=== PATIENT | male | born 1990 | race Caucasian/White ===

== ENCOUNTER 2019-05-21 00:33 | Emergency (ER) | payer SELFPAY ==
[~2019-05-21] VITALS: Ht 188 cm; Wt 113.4 kg
[2019-05-21 00:47] VITALS: BP 124/77
--- NOTE | 2019-05-21 00:47 | NUR ---
ED Nurse Note: OD on xanax and possible street fentanyl. Pt called EMS from his car, as he was trying to get to a hospital. Pt is AO x 2~3 times, VSS, on room air no distress. MEGD seen Pt at bedside.
[2019-05-21] MEDS ORDERED: Naloxone 1mg/ml 2ml IVP ONE (01:00)
[2019-05-21 02:30] VITALS: BP 110/80
[2019-05-21] MEDS ORDERED: NARCAN4 MG NS (02:53)
[2019-05-21 03:51] VITALS: BP 118/79
--- NOTE | 2019-05-21 03:56 | NUR ---
ER DISCHARGE NOTE: Patient is cleared to be discharged per ERMD, pt is aox4, on room air, with stable vital signs. pt was given dc and prescription instructions, pt was able to verbalize understanding, pt id band and iv site removed without complications. pt is able to ambulate with steady gait with mother. pt took all belongings.
[2019-05-21 03:57] VITALS: BP 118/79
--- NOTE | 2019-05-21 05:31 | Emergency Room Report ---
History of Present Illness General Chief Complaint: Overdose Source: EMS Present Illness HPI Patient is a 29-year-old male who presented by EMS after overdose on fentanyl. Patient states that he had used fentanyl just prior to arrival. He reported feeling bad subsequently and called EMS. He had prior history of heroin abuse but had not used fentanyl in the past. He denies any nausea or vomiting. He states is not used for quite a long time. He denies any other ingestion. Allergies: Uncoded Allergies: SHELL FISH (Allergy, Unknown, 05/21/19) Patient History Past Medical History: see triage record Reviewed Nursing Documentation: PMH: Agreed; PSxH: Agreed Nursing Documentation-PMH Hx Hypertension: Yes History Of Psychiatric Problem: Yes - Anxiety Review of Systems All Other Systems: negative except mentioned in HPI Physical Exam Vital Signs Date Time Temp Pulse Resp B/P (MAP) Pulse Ox O2 Delivery O2 Flow Rate FiO2 05/21/19 00:42 98.4 105 16 111/73 (86) 94 Room Air Sp02 EP Interpretation: reviewed, normal General Appearance: normal inspection, well appearing, no apparent distress, alert, GCS 15 Head: atraumatic ENT: normal ENT inspection, hearing grossly normal, normal voice Neck: normal inspection, full range of motion, supple, no bony tend Respiratory: normal inspection, lungs clear, normal breath sounds, no respiratory distress, no retraction, no wheezing Cardiovascular #1: regular rate, rhythm, no edema Gastrointestinal: normal inspection, normal bowel sounds, non tender, soft, no guarding, no hernia Genitourinary: no CVA tenderness Musculoskeletal: normal inspection, back normal, normal range of motion Neurologic: normal inspection, alert, responsive, speech normal Psychiatric: normal inspection, judgement/insight normal, mood/affect normal Medical Decision Making Diagnostic Impression: Primary Impression: Drug overdose ER Course Patient presented after a drug overdose. Differential diagnosis include was not limited to, ingestion, delayed pulmonary edema, opiate withdrawal among others. Patient was noted to be somewhat somnolent initially. He was given Narcan dosing with improvement in his mental status. Patient was observed in the emergency department was stable throughout stay. He did not require further Narcan dosing. At the time of discharge patient was awake alert oriented x3. He is ambulatory without assistance.Patient was given prescription for Narcan intranasal Last Vital Signs Date Time Temp Pulse Resp B/P (MAP) Pulse Ox O2 Delivery O2 Flow Rate FiO2 05/21/19 03:57 97.6 94 19 118/79 98 Room Air Status: improved Disposition: HOME, SELF-CARE Condition: Improved Scripts Naloxone HCl (Narcan) 4 Mg [place] 4 MG NS ONCE for overdose, #1 SPRAY Prov: Leonardo Pierre MD 05/21/19 Referrals: NOT CHOSEN IPA/,REFERRING (PCP) Patient Instructions: Narcotic Overdose Leonardo Pierre MD May 21, 2019 05:31
== END 2019-05-21 03:58 | disposition home or self-care (01) ==
LOC: EDBD 00:33 → EMR 01:12
DX: T40.4X1A Poisoning by other synthetic narcotics, accidental (unintentional), initial encounter (principal); Z91.013 Allergy to seafood; I10 Essential (primary) hypertension; F41.9 Anxiety disorder, unspecified
CPT/HCPCS: 96374; 99284; J2310

== ENCOUNTER 2019-07-27 03:10 | Inpatient (IN) | payer BC ==
[~2019-07-27] VITALS: Ht 190.5 cm; Wt 107.0 kg
[2019-07-27] VITALS (7 sets, daily range): BP systolic 93–149; BP diastolic 54–86
[~2019-07-27 03:10] MED LIST: NARCAN4 MG NS
--- NOTE | 2019-07-27 03:20 | NUR ---
ED Nurse Note: PATIENT WAS BIBA R58 FROM 05/22 C/C OD ON FENTANYL. BS WAS 273 UPON ARRIVAL. NARCAN 2MG IM X 1. PATIENT PRESENTED AAO X2, BARELY SPEAKING, TACHICARDIC, OTHER VSS AT THIS TIME, SKIN IS DRY WARM TO TOUCH.
--- NOTE | 2019-07-27 03:27 | NUR ---
[facility] is here
[2019-07-27 03:38] LABS: HEMATOCRIT 46.2 % (42.0-52.0); HEMOGLOBIN 15.6 G/DL (14.2-18.0); MEAN CORPUSCULAR VOLUME 88 FL (80-99); PLATELET COUNT 273 K/UL (150-450); RED BLOOD COUNT 5.23 M/UL (4.70-6.10); RED CELL DISTRIBUTION WIDTH 11.3 % (11.6-14.8)
[2019-07-27 03:44] LABS: ANION GAP 12 mmol/L (5-15); BLOOD UREA NITROGEN 15 mg/dL (7-18); CALCIUM 8.5 MG/DL (8.5-10.1); CARBON DIOXIDE 28 MMOL/L (21-32); CHLORIDE 101 MMOL/L (98-107); CREATININE 1.4 MG/DL (0.55-1.30); POTASSIUM 4.2 MMOL/L (3.5-5.1); SODIUM 140 MMOL/L (136-145)
[2019-07-27 03:49] LABS: ALANINE AMINOTRANSFERASE 50 U/L (12-78); ALBUMIN 4.3 G/DL (3.4-5.0); ALBUMIN/GLOBULIN RATIO 1.1 (1.0-2.7); ALKALINE PHOSPHATASE 95 U/L (46-116); ASPARTATE AMINO TRANSFERASE 49 U/L (15-37); BILIRUBIN,TOTAL 0.6 MG/DL (0.2-1.0)
[2019-07-27 04:03] LABS: APPEARANCE,URINE CLEAR; BILIRUBIN, URINE NEGATIVE (NEGATIVE); COLOR,URINE PALE YELLOW; GLUCOSE, URINE (UA) 4+ (NEGATIVE); KETONES,URINE NEGATIVE (NEGATIVE); LEUKOCYTE ESTERASE ,URINE NEGATIVE (NEGATIVE); NITRITE,URINE NEGATIVE (NEGATIVE); PH,URINE 5 (4.5-8.0); PROTEIN,URINE 2+ (NEGATIVE); UROBILINOGEN,URINE NORMAL MG/DL (0.0-1.0)
[2019-07-27] MEDS ORDERED: cefTRIAXone 1 GM in NS 55 ML IVPB ONE (04:45)
--- NOTE | 2019-07-27 05:17 | Emergency Room Report ---
History of Present Illness General Chief Complaint: Overdose Source: Patient Present Illness HPI 29-year-old male presents ED for evaluation. Brought in by EMS for overdose. Reportedly used fentanyl tonight. Was given Narcan by EMS. Is more awake. Admits to fentanyl use. Denies SI or HI. Denies any other drug use. Denies chest pain or shortness of breath. No other aggravating relieving factors. Denies any other associated symptoms Allergies: Uncoded Allergies: PEANUTS (Allergy, Unknown, 07/27/19) SHELL FISH (Allergy, Unknown, 05/21/19) Patient History Past Medical History: psych hx Past Surgical History: none Pertinent Family History: none Social History: Reports: drug use; Denies: smoking, alcohol use Immunizations: UTD Reviewed Nursing Documentation: PMH: Agreed; PSxH: Agreed Nursing Documentation-PMH Past Medical History: No History, Except For Hx Hypertension: Yes History Of Psychiatric Problem: Yes - DEPRESSION Review of Systems All Other Systems: negative except mentioned in HPI Physical Exam Vital Signs Date Time Temp Pulse Resp B/P (MAP) Pulse Ox O2 Delivery O2 Flow Rate FiO2 07/27/19 03:06 98.6 132 24 149/86 (107) 99 Room Air Sp02 EP Interpretation: reviewed, normal General Appearance: no apparent distress, alert, GCS 15, non-toxic Head: normocephalic, atraumatic Eyes: bilateral eye normal inspection, bilateral eye PERRL ENT: hearing grossly normal, normal pharynx, no angioedema, normal voice Neck: full range of motion, supple/symm/no masses Respiratory: chest non-tender, lungs clear, normal breath sounds, speaking full sentences Cardiovascular #1: no edema, tachycardia Cardiovascular #2: 2+ carotid (R), 2+ carotid (L), 2+ radial (R), 2+ radial (L) , 2+ dorsalis pedis (R), 2+ dorsalis pedis (L) Gastrointestinal: normal bowel sounds, non tender, soft, non-distended, no guarding, no rebound Rectal: deferred Genitourinary: normal inspection, no CVA tenderness Musculoskeletal: back normal, gait/station normal, normal range of motion, non- tender Neurologic: alert, oriented x3, responsive, motor strength/tone normal, sensory intact, speech normal Psychiatric: judgement/insight normal, memory normal, anxious Reflexes: 3+ bicep (R), 3+ bicep (L), 3+ tricep (R), 3+ tricep (L), 3+ knee (R) , 3+ knee (L) Skin: other - see nursing notes Lymphatic: no adenopathy Procedures Critical Care Time Critical Care Time i. I feel this is a highly complex case requiring extensive working including EKG/Rhythm strip, Xray/CT/US, Blood/urine lab work, repeat exams while in ED, and administration of strong opiates/narcotics for pain control, admission to hospital or close patient follow up. Total time: 30 min bedside evaluation and treatment excludes procedures (EKG). Reason for critical care: tachycardia, hypotensive, leukocytosis, overdose Possible complications: hypotension, hypertension, CT, shock, arrhythmias, metabolic acidosis, end organ damage, respiratory failure. Interventions: Labs, IV fluids, EKG, fluid bolusing. Antibiotics. Chest x-ray. Course: Patient presenting status post overdose. Given Narcan. Tachycardic. Patient given IV fluids. Significant leukocytosis. Questionable infiltrate on x-ray concerning for aspiration. Given antibiotics. Became hypotensive. Improved with Trendelenburg and fluid bolus. Consultations: nursing staff, EMS, family Performed by: Dr Plasencia Tolerated well condition = serious j. because of unstable vital signs this patient had a condition that could potentially threaten life or limb. I feel this is a critical patient who required my full attention while patient was considered critical. Total Critical Care Time excluding procedures was greater than 35 minutes Medical Decision Making Diagnostic Impression: Primary Impression: Drug overdose Qualified Codes: T50.904A - Poisoning by unspecified drugs, medicaments and biological substances, undetermined, initial encounter Additional Impressions: Hyperglycemia Leukocytosis Qualified Codes: D72.829 - Elevated white blood cell count, unspecified ER Course Hospital Course 29-year-old male presents to ED with altered mental status. used fentanyl. given narcan Differential diagnoses include: substance, alcohol toxicity, dehydration Clinical course She placed on stretcher. 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 After initial history and physical ordered labs, IV fluids, EKG Labs reviewed-electrolytes okay, marked leukocytosis, hemoglobin/hematocrit stable, UA negative EKG - sinus tachycardia no acute ischemic changes interpreted by me CXR - ? interstitial congestion Patient stated he has been feeling depressed lately however denies SI. Has been seen here previously for fentanyl overdose. Given leukocytosis concern for aspiration. Given antibiotics. Patient became hypotensive. Given IV fluids with tachycardia and BP improving case discussed with Dr. Anderson and he agreed to accept the patient to his service for further care and support i. I feel this is a highly complex case requiring extensive working including EKG/Rhythm strip, Xray/CT/US, Blood/urine lab work, repeat exams while in ED, and administration of strong opiates/narcotics for pain control, admission to hospital or close patient follow up. Diagnosis - drug overdose, hyperglycemia, leukocytosis Admitted to telemetry in serious condition Labs Test 07/27/19 03:30 07/27/19 05:07 White Blood Count 26.0 K/UL (4.8-10.8) Red Blood Count 5.23 M/UL (4.70-6.10) Hemoglobin 15.6 G/DL (14.2-18.0) Hematocrit 46.2 % (42.0-52.0) Mean Corpuscular Volume 88 FL (80-99) Mean Corpuscular Hemoglobin 29.9 PG (27.0-31.0) Mean Corpuscular Hemoglobin Concent 33.9 G/DL (32.0-36.0) Red Cell Distribution Width 11.3 % (11.6-14.8) Platelet Count 273 K/UL (150-450) Mean Platelet Volume 6.9 FL (6.5-10.1) Neutrophils (%) (Auto) % (45.0-75.0) Lymphocytes (%) (Auto) % (20.0-45.0) Monocytes (%) (Auto) % (1.0-10.0) Eosinophils (%) (Auto) % (0.0-3.0) Basophils (%) (Auto) % (0.0-2.0) Differential Total Cells Counted 100 Neutrophils % (Manual) 92 % (45-75) Lymphocytes % (Manual) 5 % (20-45) Monocytes % (Manual) 1 % (1-10) Eosinophils % (Manual) 0 % (0-3) Basophils % (Manual) 0 % (0-2) Band Neutrophils 2 % (0-8) Platelet Estimate Adequate Platelet Morphology Normal Red Blood Cell Morphology Normal Urine Color Pale yellow Urine Appearance Clear Urine pH 5 (4.5-8.0) Urine Specific [place] 1.025 (1.005-1.035) Urine Protein 2+ (NEGATIVE) Urine Glucose (UA) 4+ (NEGATIVE) Urine Ketones Negative (NEGATIVE) Urine Blood 1+ (NEGATIVE) Urine Nitrite Negative (NEGATIVE) Urine Bilirubin Negative (NEGATIVE) Urine Urobilinogen Normal MG/DL (0.0-1.0) Urine Leukocyte Esterase Negative (NEGATIVE) Urine RBC 10-15 /HPF (0 - 0) Urine WBC 5-10 /HPF (0 - 0) Urine Squamous Epithelial Cells Occasional /LPF Urine Bacteria Few /HPF (NONE) Urine Hyaline Casts 0-2 /LPF (NONE) Urine Fine Granular Casts 2-4 /LPF (NONE) Sodium Level 140 MMOL/L (136-145) Potassium Level 4.2 MMOL/L (3.5-5.1) Chloride Level 101 MMOL/L (98-107) Carbon Dioxide Level 28 MMOL/L (21-32) Anion Gap 12 mmol/L (5-15) Blood Urea Nitrogen 15 mg/dL (7-18) Creatinine 1.4 MG/DL (0.55-1.30) Estimat Glomerular Filtration Rate 59.9 mL/min (>60) Glucose Level 273 MG/DL (74-106) Calcium Level 8.5 MG/DL (8.5-10.1) Total Bilirubin 0.6 MG/DL (0.2-1.0) Aspartate Amino Transf (AST/SGOT) 49 U/L (15-37) Alanine Aminotransferase (ALT/SGPT) 50 U/L (12-78) Alkaline Phosphatase 95 U/L (46-116) Total Protein 8.2 G/DL (6.4-8.2) Albumin 4.3 G/DL (3.4-5.0) Globulin 3.9 g/dL Albumin/Globulin Ratio 1.1 (1.0-2.7) Salicylates Level 0.6 ug/mL (2.8-20) Urine Opiates Screen Negative (NEGATIVE) Acetaminophen Level < 2 MCG/ML (10-30) Urine Barbiturates Screen Negative (NEGATIVE) Phencyclidine (PCP) Screen Negative (NEGATIVE) Urine Amphetamines Screen Negative (NEGATIVE) Urine Benzodiazepines Screen Negative (NEGATIVE) Urine Cocaine Screen Negative (NEGATIVE) Urine Marijuana (THC) Screen Negative (NEGATIVE) Serum Alcohol < 3 mg/dL EKG Diagnostic Results Rate: tachycardiac Rhythm: NSR ST Segments: no acute changes ASA given to the pt in ED: No Rhythm Strip Diag. Results EP Interpretation: yes Rhythm: NSR, no PVC's, no ectopy Chest X-Ray Diagnostic Results Chest X-Ray Diagnostic Results : Chest X-Ray Ordered: Yes # of Views/Limited/Complete: 1 View Indication: Other EP Interpretation: Yes Interpretation: no pneumothorax, other Last Vital Signs Date Time Temp Pulse Resp B/P (MAP) Pulse Ox O2 Delivery O2 Flow Rate FiO2 07/27/19 03:14 98.6 24 149/86 99 Room Air 07/27/19 03:14 132 Status: improved Disposition: ADMITTED INPATIENT Condition: Serious Referrals: NOT CHOSEN IPA/,REFERRING (PCP) Nilay Plasencia MD Jul 27, 2019 05:17
--- NOTE | 2019-07-27 05:24 | Diagnostic Imaging Report ---
EXAM: XR Chest, 1 View CLINICAL HISTORY: AMS TECHNIQUE: Frontal view of the chest. COMPARISON: No relevant prior studies available. FINDINGS: Lungs: The lungs are mildly hypoinflated, slightly accentuating interstitial and vascular markings. Mild perihilar interstitial opacities, left more than right, suggestive of mild interstitial edema. No definite airspace consolidation. Mild bibasilar atelectasis. Pleural space: Unremarkable. No pneumothorax. Heart: Unremarkable. No cardiomegaly. Mediastinum: Unremarkable. No mediastinal widening or shift. Bones joints: Unremarkable. IMPRESSION: Mild interstitial edema. No airspace consolidation.
[2019-07-27] MEDS ORDERED: Azithromycin 500 MG in NS 275 ML IV ONE (05:45)
--- NOTE | 2019-07-27 06:10 | NUR ---
ED Nurse Note: Patient was admited to Tele due to OD, hyperglycemia. Patient was transfered to the unit via gurney, by ACLS protocol, with all belongings. is by bed side.
--- NOTE | 2019-07-27 06:30 | NUR ---
NURSE NOTES: Pt arrived on unit via gurney from ER. Got report from Gabrielle VALDIVIA. Pt says he feels a little dizzy but better than before. Pt fully oriented and able to answer all of my questions but it take him awhile to answer. No skin issues noted. VS BP:93/60 HR:106 T:98.2 R:18 O2:96% on 2L NC. Pt able to ambulate but still weak. Denies any pain. Denies any N/V. Pt resting in bed comfortably. Bed in low and locked position, call light within reach, bedside table within reach. Dr. Condon will be his primary Dr. Continue to monitor.
--- NOTE | 2019-07-27 07:00 | NUR ---
HAND-OFF: Report given to Daysi VALDIVIA.
--- NOTE | 2019-07-27 07:23 | NUR ---
NURSE NOTES: Received report from Gaurang/RN, Patient is asleep, lying semi-earl's, resting comfortably. On 2L nasal canula, No signs of acute distress/SOB noted at this time. Checked IV site, patent, no bleeding, or infiltration noted. Bed at lowest position, and locked. brakes on, side rails up x3, Family at bedside. Call light and personal belonging within reach. Will continue plan of care.
--- NOTE | 2019-07-27 09:05 | NUR ---
NURSE NOTES: pt SR in the monitor, spoke with Dr Mahajan and stated pt is stable and can be transfer to med surg.
[2019-07-27] MEDS ORDERED: LEXAPRO20 MG ORAL (10:37)
--- NOTE | 2019-07-27 10:38 | History and Physical ---
History of Present Illness General Date patient seen: Jul 27, 2019 Time patient seen: 08:00 Reason for Hospitalization: fentanyl overdose Present Illness HPI 29 year old male with hx of depression (on lexapro 30 mg), presented after fentanyl overdose. He attends [employer] and has been sober for ~60 days. Last night, he went to hang out with his sober friends from , texted his mom and significant other that he will be back home around midnight. However , he did not return home. Thankfully, he had a tracker (Find my location) on, so his mother and SO went to find him in his car, not breathing, with eyes open and vomit all over his shirt, arounud mouth, around 1:30AM. 911 was called, and bystanders started resuscitation. When 911 arrived, Narcan spray was used with immediate improvement. Subsequently, he was transferred here for further evaluation. Of note, he is following a therapist, and occasionally gets his Lexapro prescription filled by a psychiatrist. He and his family deny use of tobacco, THC and alcohol. His drug of choice is fentanyl and he smokes it. Per SO, he gets it through [facility]. He denies any suicidal ideation, but SO is not sure. His depression has been difficult to control. She thinks he may be bipolar. Patient currently denies any SOB, chest pain, fever, chills, cough, weakness, nausea, vomiting. Mother and SO are interested to see social director, psychiatry and prescription for Narcane. Social history: stated above. Lives with SO. Works at the [email or web address] owned by [employer]. Allergies: Uncoded Allergies: PEANUTS (Allergy, Unknown, 07/27/19) SHELL FISH (Allergy, Unknown, 05/21/19) Medication History Scheduled Escitalopram Oxalate* (Lexapro*), 30 MG ORAL DAILY, (Reported) Naloxone HCl (Narcan), 4 MG NS ONCE Patient History History Provided By: Patient, Family Member, Significant Other Healthcare decision maker DOMINIK MCCONNELL Resuscitation status Full Code Advanced Directive on File No Past Medical/Surgical History Past Medical/Surgical History: (1) Hyperglycemia (2) Drug overdose (3) Leukocytosis (4) Major depressive disorder Review of Systems Constitutional: Denies: no symptoms, see HPI, chills, sweats, fever, malaise, weakness, other Eye: Denies: no symptoms, see HPI, eye pain, blurred vision, tearing, double vision, nose pain, nose congestion, acuity changes, discharge, other ENT: Denies: no symptoms, see HPI, ear pain, ear discharge, nose pain, nose congestion, throat pain, throat swelling, mouth pain, hearing loss, nasal discharge, other Respiratory: Denies: no symptoms, see HPI, cough, orthopnea, shortness of breath, stridor, wheezing, RUBIO, sputum, other Cardiovascular: Denies: no symptoms, see HPI, chest pain, edema, palpitations, syncope, PND, other Gastrointestinal: Denies: no symptoms, see HPI, abdominal pain, constipation, diarrhea, nausea, vomiting, melena, hematemesis, other Genitourinary: Denies: no symptoms, see HPI, discharge, dysuria, frequency, hematuria, pain, retention, incontinence, urgency, vag bleed/dc, other Musculoskeletal: Denies: no symptoms, see HPI, back pain, gout, joint pain, joint swelling, muscle pain, muscle stiffness, other Skin: Denies: no symptoms, see HPI, rash, change in color, change in hair/nails , dryness, lesions, other Psychiatric: Denies: no symptoms, see HPI, prior hx, anxiety, depressed feelings, emotional problems, SI, HI, hallucinations, other Neurological: Denies: no symptoms, see HPI, headache, numbness, paresthesia, seizure, tingling, tremors, focal weakness, syncope, dizziness, other Endocrine: Denies: no symptoms, see HPI, excessive sweating, flushing, intolerance to temperature, increased thirst, increased urine, unexplained weight loss, other Hematologic/Lymphatic: Denies: no symptoms, see HPI, anemia, blood clots, easy bleeding, easy bruising, swollen glands, diathesis, other Physical Exam General Appearance: WD/WN, no apparent distress, alert oriented x3, other - drowsy apperaing Lines, tubes and drains: peripheral HEENT: normocephalic, atraumatic, anicteric Neck: supple Respiratory/Chest: lungs clear, normal breath sounds, no respiratory distress, no accessory muscle use Cardiovascular/Chest: normal rate, regular rhythm, no gallop/murmur Abdomen: normal bowel sounds, non tender, soft Extremities: normal range of motion Neurologic: alert, oriented x 3, responsive Musculoskeletal: normal muscle bulk Last 24 Hour Vital Signs Date Time Temp Pulse Resp B/P (MAP) Pulse Ox O2 Delivery O2 Flow Rate FiO2 07/27/19 09:53 Nasal Cannula 2.0 07/27/19 08:00 Nasal Cannula 2.0 07/27/19 06:30 98.2 106 18 93/60 (71) 96 07/27/19 06:30 112 07/27/19 06:08 98.6 98 22 112/62 100 Nasal Cannula 2.0 07/27/19 06:08 98.6 98 22 112/67 99 Room Air 07/27/19 03:14 98.6 24 149/86 99 Room Air 07/27/19 03:14 132 24 Room Air 07/27/19 03:06 98.6 132 24 149/86 (107) 99 Room Air Laboratory Tests Test 07/27/19 03:30 07/27/19 05:07 White Blood Count 26.0 K/UL (4.8-10.8) *H Red Blood Count 5.23 M/UL (4.70-6.10) Hemoglobin 15.6 G/DL (14.2-18.0) Hematocrit 46.2 % (42.0-52.0) Mean Corpuscular Volume 88 FL (80-99) Mean Corpuscular Hemoglobin 29.9 PG (27.0-31.0) Mean Corpuscular Hemoglobin Concent 33.9 G/DL (32.0-36.0) Red Cell Distribution Width 11.3 % (11.6-14.8) L Platelet Count 273 K/UL (150-450) Mean Platelet Volume 6.9 FL (6.5-10.1) Neutrophils (%) (Auto) % (45.0-75.0) Lymphocytes (%) (Auto) % (20.0-45.0) Monocytes (%) (Auto) % (1.0-10.0) Eosinophils (%) (Auto) % (0.0-3.0) Basophils (%) (Auto) % (0.0-2.0) Differential Total Cells Counted 100 Neutrophils % (Manual) 92 % (45-75) H Lymphocytes % (Manual) 5 % (20-45) L Monocytes % (Manual) 1 % (1-10) Eosinophils % (Manual) 0 % (0-3) Basophils % (Manual) 0 % (0-2) Band Neutrophils 2 % (0-8) Platelet Estimate Adequate Platelet Morphology Normal Red Blood Cell Morphology Normal Urine Color Pale yellow Urine Appearance Clear Urine pH 5 (4.5-8.0) Urine Specific [place] 1.025 (1.005-1.035) Urine Protein 2+ (NEGATIVE) H Urine Glucose (UA) 4+ (NEGATIVE) H Urine Ketones Negative (NEGATIVE) Urine Blood 1+ (NEGATIVE) H Urine Nitrite Negative (NEGATIVE) Urine Bilirubin Negative (NEGATIVE) Urine Urobilinogen Normal MG/DL (0.0-1.0) Urine Leukocyte Esterase Negative (NEGATIVE) Urine RBC 10-15 /HPF (0 - 0) H Urine WBC 5-10 /HPF (0 - 0) H Urine Squamous Epithelial Cells Occasional /LPF Urine Bacteria Few /HPF (NONE) Urine Hyaline Casts 0-2 /LPF (NONE) H Urine Fine Granular Casts 2-4 /LPF (NONE) H Sodium Level 140 MMOL/L (136-145) Potassium Level 4.2 MMOL/L (3.5-5.1) Chloride Level 101 MMOL/L (98-107) Carbon Dioxide Level 28 MMOL/L (21-32) Anion Gap 12 mmol/L (5-15) Blood Urea Nitrogen 15 mg/dL (7-18) Creatinine 1.4 MG/DL (0.55-1.30) H Estimat Glomerular Filtration Rate 59.9 mL/min (>60) Glucose Level 273 MG/DL (74-106) H Calcium Level 8.5 MG/DL (8.5-10.1) Total Bilirubin 0.6 MG/DL (0.2-1.0) Aspartate Amino Transf (AST/SGOT) 49 U/L (15-37) H Alanine Aminotransferase (ALT/SGPT) 50 U/L (12-78) Alkaline Phosphatase 95 U/L (46-116) Total Protein 8.2 G/DL (6.4-8.2) Albumin 4.3 G/DL (3.4-5.0) Globulin 3.9 g/dL Albumin/Globulin Ratio 1.1 (1.0-2.7) Salicylates Level 0.6 ug/mL (2.8-20) L Urine Opiates Screen Negative (NEGATIVE) Acetaminophen Level < 2 MCG/ML (10-30) L Urine Barbiturates Screen Negative (NEGATIVE) Phencyclidine (PCP) Screen Negative (NEGATIVE) Urine Amphetamines Screen Negative (NEGATIVE) Urine Benzodiazepines Screen Negative (NEGATIVE) Urine Cocaine Screen Negative (NEGATIVE) Urine Marijuana (THC) Screen Negative (NEGATIVE) Serum Alcohol < 3 mg/dL Lactic Acid Level 1.40 mmol/L (0.4-2.0) Height (Feet): 6 Height (Inches): 3.00 Weight (Pounds): 236 Medications Current Medications Medications (Trade) Dose Ordered Sig/Edy Route PRN Reason Start Time Stop Time Status Last Admin Dose Admin Dextrose (Dextrose 50%) 25 ml Q30M PRN IV Hypoglycemia 07/27/19 08:15 08/26/19 08:14 Dextrose (Dextrose 50%) 50 ml Q30M PRN IV Hypoglycemia 07/27/19 08:15 08/26/19 08:14 Assessment/Plan Problem List: (1) Hyperglycemia ICD Codes: R73.9 - Hyperglycemia, unspecified SNOMED: 61093249 (2) Leukocytosis ICD Codes: D72.829 - Elevated white blood cell count, unspecified SNOMED: 692522158, 973530069 Qualifiers: Qualified Codes: D72.829 - Elevated white blood cell count, unspecified (3) Drug overdose ICD Codes: T50.901A - Poisoning by unspecified drugs, medicaments and biological substances, accidental (unintentional), initial encounter SNOMED: 70627360 Qualifiers: Qualified Codes: T50.904A - Poisoning by unspecified drugs, medicaments and biological substances, undetermined, initial encounter (4) Major depressive disorder ICD Codes: F32.9 - Major depressive disorder, single episode, unspecified SNOMED: 243800420 Status: stable Assessment/Plan: Mr. Mcconnell is a 29 year old male with history of depression here after a fentanyl overdose, s/p resuscitation with narcane by EMS. Currently stable. #FENTANYL OVERDOSE #MAJOR DEPRESSIVE DISORDER Denies suicidal ideation, but per family, not sure. Patient has hx of depression on Lexapro 30 mg daily, managed by outside psychiatrist, but hasn't been seen by one for a long time. Sees therapist instead. s/p Narcan by EMS, currently stable. -Admitted initially to telemetry. -Downgraded to med/surg, given stability. -Continue to monitor. -Continue Lexapro 30 mg daily for now. -Social work consult placed. -Psychiatry evaluation on Sunday, and outpatient. -Narcan prescription upon discharge. #HYPERGLYCEMIA Noted to have glucose level in ~250 on presentation. No hx of DM. -premeal, qhs finger checks. -check a1c in the AM. #LEUKOCYTOSIS Noted to have leukocytosis >20 on presentation. Initially concern for possible aspiration pneumonia given vomit all over shirt, around mouth when found unrespnosive. Currently saturating well on room air, lung exam clear. CXR also negative for infiltrative process. Likely stress reaction. -monitor off abx. -check BMP. -albuterol prn for SOB. Time spent on encounter, 70 minutes. >50% of which spent on counselling/ coordination of care. Tracey Mahajan M.D. Jul 27, 2019 10:38
[2019-07-27] MEDS ORDERED: Albuterol 90mcg Inhaler 8gm INH PRN ×2 (10:45→14:45)
[2019-07-27] MEDS ORDERED: LORazepam 0.5mg tab ORAL SCH (11:45)
--- NOTE | 2019-07-27 12:14 | NUR ---
NURSE NOTES: spoke with Dr Mahajan and order clarified regarding psychiatric eval, per MD he wants Psychiatrist to see pt, (Dr Nunn), Dr Nunn made aware.
--- NOTE | 2019-07-27 13:45 | NUR ---
TRANSFER TO FLOOR: Patient transferred to [facility] (4E), per Dr. Mahajan. Report given to Manfred/RN. Patient is in stable condition, No acute distress/SOB noted. On room air, saturated 95-96%. Belongings check done. Family informed of transfer. Endorsed plan of care.
--- NOTE | 2019-07-27 13:48 | NUR ---
NURSE NOTES: Patient was transferred from tele. Report was given by SKIP Tavarez. Room air. No c/o of pain/distress. Stable vital sign. BP 108/74, WV 78, SpO2 97%, T 98. IV on L AC 20g intact and patent, with saline lock. All belongings were accounted for. Pt's mom at the bedside. Orientation on new unit given. Side rail X2. Bed in the lowest and locked. Will continue to monitor
[2019-07-27] MEDS: LORazepam 0.5mg tab ORAL PRN (18:46)
--- NOTE | 2019-07-27 19:05 | NUR ---
HAND-OFF: Report given to SKIP Jones.
--- NOTE | 2019-07-27 19:47 | NUR ---
NURSE NOTES: Received patient awake,alert,verbal,eating dinner,relatives at bedside.
[2019-07-27] MEDS: Docusate 100mg cap ORAL SCH (20:10)
[2019-07-28 07:17] LABS: EOSINOPHILS % (AUTO) 3.5 % (0.0-3.0); HEMATOCRIT 39.9 % (42.0-52.0); HEMOGLOBIN 13.6 G/DL (14.2-18.0); LYMPHOCYTES % (AUTO) 47.1 % (20.0-45.0); MEAN CORPUSCULAR VOLUME 87 FL (80-99); MONOCYTES % (AUTO) 7.7 % (1.0-10.0); NEUTROPHILS % (AUTO) 40.7 % (45.0-75.0); PLATELET COUNT 197 K/UL (150-450); RED BLOOD COUNT 4.56 M/UL (4.70-6.10); RED CELL DISTRIBUTION WIDTH 11.2 % (11.6-14.8); WHITE BLOOD COUNT 9.5 K/UL (4.8-10.8)
[2019-07-28 07:30] LABS: CALCIUM 8.8 MG/DL (8.5-10.1); CHLORIDE 107 MMOL/L (98-107); CREATININE 0.8 MG/DL (0.55-1.30); SODIUM 143 MMOL/L (136-145)
--- NOTE | 2019-07-28 07:31 | NUR ---
HAND-OFF: Report given to Manfred Regalado RN.
--- NOTE | 2019-07-28 07:32 | NUR ---
NURSE NOTES: Received pt in bed, sleeping .No s/s of distress/pain. IV on L AC 20g intact and patent, running NS @ 75 ml/hr. Side rails x 2. Bed in the lowest and locked. Call light within reach. Will continue to monitor
[2019-07-28 07:59] LABS: BLOOD UREA NITROGEN 10 mg/dL (7-18); CARBON DIOXIDE 28 MMOL/L (21-32)
[2019-07-28 08:00] VITALS: BP 118/74
[2019-07-28] MEDS: Docusate 100mg cap ORAL SCH (08:22)
[2019-07-28] MEDS: LORazepam 0.5mg tab ORAL PRN (09:15)
--- NOTE | 2019-07-28 09:26 | General Progress Note ---
Assessment/Plan Status: stable Assessment/Plan: Mr. Garcia is a 29 year old male with history of depression here after a fentanyl overdose, s/p resuscitation with Narcan by EMS. Currently stable. #FENTANYL OVERDOSE #MAJOR DEPRESSIVE DISORDER Denies suicidal ideation, but per family, not sure. Patient has hx of depression on Lexapro 30 mg daily, managed by outside psychiatrist, but hasn't been seen by one for a long time. Sees therapist instead. s/p Narcan by EMS, currently stable. -Admitted initially to telemetry. -Downgraded to med/surg, given stability. -Continue to monitor. -Continue Lexapro 30 mg daily for now. -Social work consult placed. -Psychiatry evaluation on Sunday, and outpatient. -Narcan prescription upon discharge. #HYPERGLYCEMIA Noted to have glucose level in ~250 on presentation. No hx of DM. -premeal, qhs finger checks. -A1c 5.3, patient assured no DM #LEUKOCYTOSIS Noted to have leukocytosis >20 on presentation. Initially concern for possible aspiration pneumonia given vomit all over shirt, around mouth when found unrespnosive. Currently saturating well on room air, lung exam clear. CXR also negative for infiltrative process. Likely stress reaction. -monitor off abx. -check BMP. -albuterol prn for SOB. I spent 40 minutes on this encounter, 50 or more spent on counselling and care coordination Subjective Date patient seen: Jul 28, 2019 ROS Limited/Unobtainable: No Constitutional: Denies: no symptoms, chills, diaphoresis, fever, malaise, weakness, other HEENT: Denies: no symptoms, eye pain, blurred vision, tearing, double vision, ear pain, ear discharge, nose pain, nose congestion, throat pain, throat swelling, mouth pain, mouth swelling, other Cardiovascular: Denies: no symptoms, chest pain, edema, irregular heart rate, lightheadedness, palpitations, syncope, other Respiratory: Denies: no symptoms, cough, orthopnea, shortness of breath, SOB with excertion, SOB at rest, sputum, stridor, wheezing, other Gastrointestinal/Abdominal: Denies: no symptoms, abdomen distended, abdominal pain, black stools, tarry stools, blood in stool, constipated, diarrhea, difficulty swallowing, nausea, poor appetite, poor fluid intake, rectal bleeding , vomiting, other Genitourinary: Denies: no symptoms, burning, discharge, frequency, flank pain, hematuria, incontinence, pain, urgency, other Neurologic/Psychiatric: Denies: no symptoms, anxiety, depressed, emotional problems, headache, numbness, paresthesia, pre-existing deficit, seizure, tingling, tremors, weakness, other Hematologic/Lymphatic: Denies: no symptoms, anemia, easy bleeding, easy bruising, other Allergies: Uncoded Allergies: PEANUTS (Allergy, Unknown, 07/27/19) SHELL FISH (Allergy, Unknown, 05/21/19) Subjective seen and examined with at bedside. Denies suicidal or homicidal ideation very pleasant Objective Last 24 Hour Vital Signs Date Time Temp Pulse Resp B/P (MAP) Pulse Ox O2 Delivery O2 Flow Rate FiO2 07/27/19 21:00 Nasal Cannula 2.0 07/27/19 20:00 97.9 80 18 115/61 (79) 95 07/27/19 16:00 98.8 76 18 96/54 (68) 97 07/27/19 12:00 97.8 81 20 93/70 (78) 98 07/27/19 09:53 Nasal Cannula 2.0 Intake and Output 07/27/19 07/28/19 19:00 07:00 Intake Total 240 ml 1265 ml Balance 240 ml 1265 ml Intake Oral 240 ml 440 ml IV Total 825 ml # Voids 1 3 Laboratory Tests 07/28/19 05:20: White Blood Count 9.5#, Red Blood Count 4.56L, Hemoglobin 13.6L, Hematocrit 39.9L, Mean Corpuscular Volume 87, Mean Corpuscular Hemoglobin 29.9, Mean Corpuscular Hemoglobin Concent 34.2, Red Cell Distribution Width 11.2L, Platelet Count 197, Mean Platelet Volume 6.8, Neutrophils (%) (Auto) 40.7L, Lymphocytes (%) (Auto) 47.1H, Monocytes (%) (Auto) 7.7, Eosinophils (%) (Auto) 3.5H, Basophils (%) (Auto) 1.0, Sodium Level 143, Potassium Level 4.0, Chloride Level 107, Carbon Dioxide Level 28, Blood Urea Nitrogen 10, Creatinine 0.8, Estimat Glomerular Filtration Rate > 60, Glucose Level 100#, Hemoglobin A1c [ Pending], Calcium Level 8.8 Height (Feet): 6 Height (Inches): 3.00 Weight (Pounds): 236 Objective General Appearance: no apparent distress, alert oriented x3 Lines, tubes and drains: peripheral HEENT: normocephalic, atraumatic, anicteric Neck: supple Respiratory/Chest: lungs clear, normal breath sounds, no respiratory distress, no accessory muscle use Cardiovascular/Chest: normal rate, regular rhythm, no gallop/murmur Abdomen: normal bowel sounds, non tender, soft Extremities: normal range of motion Neurologic: alert, oriented x 3, responsive Musculoskeletal: normal muscle bulk Kelechi Goncalves M.D. Jul 28, 2019 09:26
--- NOTE | 2019-07-28 11:13 | Cardiology Report ---
APPROVED REPORT EKG Measurement Heart [id number] CT [id number] Sinus tachycardia Nonspecific intraventricular conduction delay Borderline ECG
--- NOTE | 2019-07-28 11:45 | NUR ---
NURSE NOTES: Patient's insisted that patient has to leave to hospital to [facility]. Notified Dr. Goncalves and per . pt cannot leave until the patient is cleared from psych. RN explained to the patient and and told them to wait for psych consult.
[2019-07-28 12:00] VITALS: BP 121/79
--- NOTE | 2019-07-28 13:01 | NUR ---
*-* INSURANCE *-* ALL AVAILABLE CLINICALS HAVE BEEN FAXED TO: [facility] FAX ALL CLINICALS TO FAX: [phone]
--- NOTE | 2019-07-28 13:42 | NUR ---
NURSE NOTES: Patient left against medical advice. Patient reported that he needs to go to [facility]. RN explained to patient that there is no discharge order. Per Dr. Goncalves, pt is not ready for discharge. RN educated patient on consequences of leaving before fulfilling treatment, but patient adamant [id number] against medical advice. Patient removed IV. Charge nurse notified. Nursing supervisor finishing notified. And Dr. Goncalves was notified. Pt refused to sign AMA and belonging list. Patient accompanied by . Addendum: 07/28/19 at 1406 by DAVID SALCIDO RN incomplete
--- NOTE | 2019-07-28 13:52 | NUR ---
NURSE NOTES: Patient left against medical advice. Patient reported that he needs to go to [facility]. RN explained to patient that there is no discharge order. Per Dr. Goncalves, pt is not ready for discharge. RN educated patient on consequences of leaving before fulfilling treatment, but patient adamant about leaving against medical advice. Patient removed IV. Charge nurse notified. Nursing correctional food service supervisor notified. And Dr. Goncalves was notified. Pt refused to sign AMA and belonging list. Patient accompanied by .
--- NOTE | 2019-07-28 18:46 | Discharge Summary ---
Discharge Summary Hospital Course Date of Admission Jul 27, 2019 at 04:52 Date of Discharge Jul 28, 2019 at 13:45 Admitting Diagnosis overdose, hypergylcemia HPI Brijesh Garcia is a 29 year old male who was admitted on Jul 27, 2019 at 04:52 for Overdose, Hyperglycemia Consultations Psychiatry: Dr. Nunn Hospital Course Mr. Garcia is a 29 year old male with history of depression here after a fentanyl overdose, s/p resuscitation with Narcan by EMS. Currently stable. #FENTANYL OVERDOSE #MAJOR DEPRESSIVE DISORDER Denies suicidal ideation, but per family, not sure. Patient has hx of depression on Lexapro 30 mg daily, managed by outside psychiatrist, but hasn't been seen by one for a long time. Sees therapist instead. s/p Narcan by EMS, currently stable. -Admitted initially to telemetry. -Downgraded to med/surg, given stability. -Continue to monitor. -Continue Lexapro 30 mg daily for now. -Social work consult placed. -Psychiatry evaluation on Sunday, and outpatient. -Narcan prescription upon discharge. #HYPERGLYCEMIA Noted to have glucose level in ~250 on presentation. No hx of DM. -premeal, qhs finger checks. -A1c 5.3, patient assured no DM #LEUKOCYTOSIS Noted to have leukocytosis >20 on presentation. Initially concern for possible aspiration pneumonia given vomit all over shirt, around mouth when found unrespnosive. Currently saturating well on room air, lung exam clear. CXR also negative for infiltrative process. Likely stress reaction. -monitor off abx. -check BMP. -albuterol prn for SOB. I was notified by the nurse that patient wanted to sign out AMA, I spoke to the psychiatrist Dr. Nunn who assured me she would see the patient in 2 hours ( this was around 12 pm on 07/28/19). i went to patient's room and met him again, at bedside. They agreed to stay. He denies any suicidal or homicidal ideation. I spoke to the nurse and emphasized patient cannot leave AMA. Patient left AMA without signing AMA forms, I was not notified. Discharge Condition Upon Discharge: stable Discharge Disposition Patient was discharged to - left AMA Discharge Diagnoses: (1) BHAVANA (acute kidney injury) (2) Major depressive disorder (3) Drug overdose Kelechi Goncalves M.D. Jul 28, 2019 18:46
--- NOTE | 2019-07-30 15:02 | NUR ---
*-* INSURANCE *-* DISCHARGE SUMMARY HAVE BEEN FAXED TO: [facility] FAX ALL CLINICALS TO FAX: [phone]
== END 2019-07-28 13:45 | disposition left against medical advice (07) | DRG 918 ==
LOC: EDBD 03:10 → EMR 03:55 → 2E 04:52 → EDBEDREQ 05:33 → 4E 13:40
DX: T40.4X1A Poisoning by other synthetic narcotics, accidental (unintentional), initial encounter (principal); N17.9 Acute kidney failure, unspecified; R41.82 Altered mental status, unspecified; R73.9 Hyperglycemia, unspecified; F32.9 Major depressive disorder, single episode, unspecified
CPT/HCPCS: 36415; 71045; 80048; 80053; 80307; 80329; 81003; 82962; 83036; 83605; 85007; 85025; 87040; 93005; 96361; 96365; 96367; 99291